=== PATIENT | female | born 1970 ===

== ENCOUNTER 2020-09-16 08:40 | Emergency (ER) | payer OTHER, SELFPAY ==
--- NOTE | ~2020-09-16 | XR_ITS ---
EXAMINATION: XR FOOT, LEFT CLINICAL INFORMATION: Injury. Painful COMPARISON: None TECHNIQUE: AP, lateral, and oblique views of the left foot. FINDINGS: There is a nondisplaced fracture base of proximal phalanx fifth digit no additional fractures seen. The soft tissues are normal. The ankle mortise and subtalar joints are normal. There is a small calcaneal and retrocalcaneal enthesophyte. XR/XR foot LT 2V IMPRESSION: Nondisplaced fracture proximal end proximal phalanx fifth digit with mild soft tissue swelling.
[2020-09-16 08:45] VITALS: BP 159/97; PULSE 100; RESP 18; TEMP 37.1; O2SAT 99; BMI 38.7
--- NOTE | 2020-09-16 09:36 | ED_ITS ---
HPI - Extremity Injury (Lower) General Chief Complaint: Extremity Injury, Lower Stated Complaint: lt foot injury Time Seen by Provider: 09/16/20 09:36 Source: patient Mode of arrival: ambulatory Limitations: no limitations History of Present Illness HPI Narrative: 50 y/o female presenting with left lateral foot pain for the last 4 days after she accidentally kicked a piece of furniture. She has been avoiding coming to the hospital but the pain has been persistent and affecting her ability to work so she came in for evaluation today. She denies ankle pain or injury. She is able to ambulate with the help of a cane. She report some bruising to her foot and swelling. She has been taking motrin and trying to ice it when possible. 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 MD complaint: foot injury Onset (ago): day(s) (4) Injury: Left: foot and toes Type of Injury: blunt Place: home Severity: moderate Severity scale (1-10): 5 Relieving factors: NSAID, cold therapy, immobilization and rest Exacerbating factors: weight bearing, movement and palpation Context: direct blow Associated symptoms: swelling and able to partially bear weight Other symptoms: none Treatments prior to arrival: cold therapy Related Data Previous Rx's Medication Instructions Recorded albuterol sulfate 90 mcg/actuation 1 inh INHALATION QID PRN 90 Days 07/19/20 aerosol inhaler #18 g hydrocodone-acetaminophen 1 tab PO Q6H PRN #6 tab 09/16/20 ibuprofen 600 mg PO Q8H PRN #20 tab 09/16/20 Allergies Allergy/AdvReac Type Severity Reaction Status Date / Time No Known Allergies Allergy Unverified 11/21/19 15:24 Review of Systems Review of Systems: Constitutional: No Fever, No Chills Gastrointestinal: No Nausea, No Vomiting Musculoskeletal: No joint pain, No Myalgias Skin: No Skin Lesions, No rash Neuro: No Weakness, No Numbness, Psych: No Anxiety/Panic, No Depression Heme/Lymph: + Bruising, No Lymphadenopathy PMFSH Past Medical History Attestation statement: The following information was validated with the patient. Medical History (Updated 09/16/20 @ 10:04 by TIA Mccabe) No known health problems Social History Social History Advance Directives: Yes Advance Directives Information Provided: Yes Advance Directives on File: No Physical Exam Vital Signs: Vital Signs: Last Vital Signs Temp 98.7 F 09/16/20 08:45 Pulse 100 09/16/20 08:45 Resp 18 09/16/20 08:45 BP 159/97 H 09/16/20 08:45 Pulse Ox 99 09/16/20 08:45 Body Mass Index 38.7 Appearance: Alert. Oriented X3. No acute distress. HEENT: normal inspection CVS: Normal heart rate and rhythm. Pulses normal. Respiratory: No respiratory distress. Skin: Skin warm and dry. Normal skin color. Normal skin turgor. No rashes. Extremities: left foot with mild ecchymosis at the base of toes 3-5. Tenderness at the base of the 4th and 5th toes and distal metatarsals. NV intact. able to move all toes. Neuro: Oriented X 3. No motor deficit. No sensory deficit. Ambulates with slow but steady gait, using a cane Course Course Course Narrative: 50 y/o female presenting with left lateral foot and toe pain after she kicked a table 4 days ago. Ecchymosis and tenderness noted. XR ordered for further evaluation. Reevaluation(s) Reevaluation #1: XR showing Nondisplaced fracture proximal end proximal phalanx fifth digit with mild soft tissue swelling. Placed in post-op shoe. She has a cane for ambulation. Will provide pain control and referral to ortho for further management. Discharge Plan Discharge Clinical Impression: Fracture of toe Qualifiers: Encounter type: initial encounter Toe: lesser toe Fracture type: closed Phalanx: proximal Fracture alignment: nondisplaced Laterality: left Qualified Code(s): S92.515A - Nondisplaced fracture of proximal phalanx of left lesser toe(s), initial encounter for closed fracture Patient Disposition: Home, Self-Care Instructions: Toe Fracture (ED) Additional Instructions: Your x-ray today showed a fracture at the base of your pinky toe. Wear the post-op shoe as needed for comfort. You may bear weight as tolerated. Recommend rest, icing several times per day and elevating your foot when possible. Follow up with the mobile security specialist. If you develop new or worsening symptoms call 911 or come back to the ER for further evaluation. Prescriptions: New ibuprofen 600 mg tablet 600 mg PO Q8H PRN (Reason: pain) Qty: 20 RF: 0 hydrocodone-acetaminophen 5-325 mg tablet 1 tab PO Q6H PRN (Reason: pain) Qty: 6 RF: 0 No Action albuterol sulfate 90 mcg/actuation HFA aerosol inhaler 1 inh inhalation QID PRN (Reason: shortness of breath or wheezing) 90 Days Qty: 18 RF: 3 Referrals: Jose Carlos Harris MD [Physician] - 1 week (Nondisplaced fracture proximal end proximal phalanx fifth digit with mild soft tissue swelling.) Stand Alone Forms: Work/School Release Interventions: ED Discharge Assessment Last Done: 09/16/20 10:30 Discharge Date/Time: 09/16/20 10:31
== END 2020-09-16 10:31 | disposition home or self-care (01) ==
PROVIDERS: Emergency Provider Emergency Medicine; PCP Internal Medicine
DX: S92.515A Nondisplaced fracture of proximal phalanx of left lesser toe(s), initial encounter for closed fracture (principal); M79.672 Pain in left foot; X58.XXXA Exposure to other specified factors, initial encounter; Y93.9 Activity, unspecified; Y92.9 Unspecified place or not applicable; Y99.9 Unspecified external cause status; Z79.899 Other long term (current) drug therapy
CPT/HCPCS: 73620; 99283

== ENCOUNTER 2020-10-16 10:21 | Outpatient (REF) | payer OTHER, SELFPAY ==
--- NOTE | ~2020-10-16 | MM_ITS ---
EXAMINATION: MM SCREENING DIGITAL BREAST TOMOSYNTHESIS, BILATERAL CLINICAL INFORMATION: Screening. Asymptomatic. The lifetime risk of breast cancer based on the Tyrer-Cuzick Model is 5%. COMPARISON: Mammography: 10/11/2019, 10/09/2018, 02/15/2014 TECHNIQUE: Digital breast tomosynthesis is performed in both the craniocaudal and mediolateral oblique views along with computer-aided detection (CAD). Synthesized 2D images are generated from the tomosynthesis. FINDINGS: The breasts are almost entirely fatty (ACR BI-RADS breast composition Category a). There are no significant masses, abnormal calcifications, or other abnormalities. Background stromal markings are stable and unremarkable. There are grouped benign coarse dermal calcifications again seen posterior 5:00 right breast. MM/MM tomosynthesis screening BI IMPRESSION: No mammographic evidence of malignancy. ASSESSMENT: BI-RADS 2: Benign RECOMMENDATION: Routine annual mammography screening. This patient's information was entered into a reminder system with a target due date for their next mammogram.
== END 2020-10-16 10:22 | disposition home or self-care (01) ==
LOC: HO.MAMMO 10:21
PROVIDERS: Visit Provider Internal Medicine
DX: Z12.31 Encounter for screening mammogram for malignant neoplasm of breast (principal)
CPT/HCPCS: 77063; 77067

== ENCOUNTER → 2021-01-05 11:36 | Outpatient (BNVA) | payer OTHER, SELFPAY | PROVIDERS: PCP Internal Medicine; Visit Provider Physician Assistant Medical | DX: L29.9 Pruritus, unspecified (principal) | CPT/HCPCS: 99202 ==

== ENCOUNTER 2021-05-22 08:54 | Outpatient (REF) | payer OTHER, SELFPAY ==
--- NOTE | ~2021-05-22 | XR_ITS ---
EXAMINATION: RIGHT WRIST X-RAY CLINICAL INFORMATION: Pain COMPARISON: None TECHNIQUE: 4 views of the right wrist FINDINGS: Bone alignment is normal. No fracture or dislocation is seen. Joint spaces are normal. Soft tissues are normal. XR/XR hand wrist RT IMPRESSION: Unremarkable exam.
[2021-05-22 09:35] LABS: MANUAL DIFF FLAG NO
[2021-05-22 10:20] LABS: Basophils Percent Auto 0.2 % (0-2); Eosinophils Absolute Auto 0.3 X10*3/uL (0.0-0.4); Eosinophils Percent Auto 3.4 % (0-4); Hematocrit 38.8 % (37.0-47.0); Hemoglobin 12.7 g/dl (12.0-16.0); Imm Gran Abs Auto 0.04 X10*3/uL (0.00-0.03); Imm Gran Pct Auto 0.5 % (0.0-0.4); Lymphocytes Absolute Auto 2.1 X10*3/uL (1.2-4.9); Lymphocytes Percent Auto 25.1 % (20-40); Mean Corpuscular HGB Conc 32.7 g/dl (31.0-35.0); Mean Corpuscular Hemoglobin 29.6 pg (27.0-33.0); Mean Corpuscular Volume 90.4 fL (80.0-98.0); Mean Platelet Volume 9.2 fL (9.4-12.3); Monocytes Absolute Auto 0.7 X10*3/uL (0.1-1.2); Monocytes Percent Auto 7.8 % (2-11); Neutrophils Absolute Auto 5.3 x10*3/uL (2.0-8.3); Platelet Count 328 X10*3/uL (160-400); Red Blood Count 4.29 X10*6/uL (4.20-5.50); Red Cell Distribution Width 13.2 % (11.0-16.0); White Blood Count 8.5 X10*3/uL (4.8-10.8)
[2021-05-22 10:31] LABS: Alanine Aminotransferase 26 U/L (0-31); Alkaline Phosphatase 153 U/L (39-117); Anion Gap 14 (12-20); Aspartate Amino Transferase 22 U/L (5-31); Bilirubin Total 0.6 mg/dL (0.0-1.0); Blood Urea Nitrogen 19 mg/dL (9-16); Calcium 9.4 mg/dL (8.4-10.2); Carbon Dioxide 24 mmol/L (22-29); Chloride 105 mmol/L (96-108); Cholesterol 250 mg/dL; Estimated Glomerular Filt Rate > 60; Glucose Fasting 107 mg/dL (60-99); HDL Cholesterol 50 mg/dL; LDL Cholesterol Calculated 187 mg/dl; Potassium 5.2 mmol/L (3.3-5.1); Sodium 138 mmol/L (135-145); Total Protein 7.4 g/dL (6.5-8.0); Triglycerides 68 mg/dL
[2021-05-22 10:53] LABS: Thyroid Stimulating Hormone 0.88 uIU/mL (0.32-4.0)
== END 2021-05-22 08:55 | disposition home or self-care (01) ==
LOC: HO.LAB 08:54
PROVIDERS: PCP Internal Medicine; Visit Provider Internal Medicine
DX: Z00.00 Encounter for general adult medical examination without abnormal findings (principal); M25.531 Pain in right wrist; E66.9 Obesity, unspecified; E78.5 Hyperlipidemia, unspecified; D64.9 Anemia, unspecified; J45.40 Moderate persistent asthma, uncomplicated
CPT/HCPCS: 36415; 73110; 73130; 80053; 80061; 84443; 85025

== ENCOUNTER → 2021-07-22 07:55 | Outpatient (BNVA) | payer OTHER, SELFPAY | PROVIDERS: PCP Internal Medicine; Referring Provider Internal Medicine; Visit Provider Nurse Practitioner | DX: Z12.11 Encounter for screening for malignant neoplasm of colon (principal) ==

== ENCOUNTER 2021-10-14 14:13 | Emergency (ER) | payer OTHER, SELFPAY ==
[2021-10-14 14:37] VITALS: BP 154/107; PULSE 97; RESP 18; TEMP 36.8; O2SAT 97; BMI 38.7
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
[2021-10-14 16:55] VITALS: BP 150/89
== END 2021-10-14 17:10 | disposition home or self-care (01) ==
PROVIDERS: Emergency Provider Emergency Medicine; PCP Internal Medicine
DX: S16.1XXA Strain of muscle, fascia and tendon at neck level, initial encounter (principal); V43.63XA Car passenger injured in collision with pick-up truck in traffic accident, initial encounter; R51.9 Headache, unspecified; Y93.89 Activity, other specified; Y92.414 Local residential or business street as the place of occurrence of the external cause; Y99.9 Unspecified external cause status
CPT/HCPCS: 99282; 99283

== ENCOUNTER → 2023-05-05 08:28 | Outpatient (BNVA) | payer OTHER, SELFPAY | PROVIDERS: PCP Internal Medicine; Visit Provider Internal Medicine | DX: S63.8X2A Sprain of other part of left wrist and hand, initial encounter (principal); X50.1XXA Overexertion from prolonged static or awkward postures, initial encounter | CPT/HCPCS: 99203 ==

== ENCOUNTER → 2023-05-10 10:46 | Outpatient (BNVA) | payer OTHER, SELFPAY | PROVIDERS: PCP Internal Medicine; Visit Provider Internal Medicine | DX: S63.502A Unspecified sprain of left wrist, initial encounter (principal); S64.02XA Injury of ulnar nerve at wrist and hand level of left arm, initial encounter; X58.XXXA Exposure to other specified factors, initial encounter; R20.2 Paresthesia of skin | CPT/HCPCS: 73110; 73130; 99203 ==

== ENCOUNTER 2023-05-24 07:30 | Outpatient (RCR) | payer OTHER, SELFPAY ==
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
--- NOTE | 2023-05-24 08:15 | MHC.OT.OP ---
[address] [phone] F: [phone] Occupational Therapy Progress Note Patient Name: Vale Martin Diagnosis: Left wrist strain Date of Evaluation: 05/12/23 Treatments to Date: 3 Subjective: It feels good, the pain is on and off Pain Score: 0 Pain Location: left wrist, volar forearm Objective Measures: Wrist range and gross grasp WFL Quickdash score 2 Status: Progressing Assessment: Vale has been seen in OT after left wrist strain at work. She has done very well w/ good joint protection, activity modification and general progression of range and strength. She has been on light duty at work, but offers no complaint w/ daily activities and reports being pain free at most times, only straining w/ full rotation of forearm. She has met all goals and is Ind w/ home program for self mangement, and she will continue to avoid full forearm rotation, especially in combination with force. 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 Electronically Signed By: Nubia Rodriguez OTR/L NATHENT Reviewed/agree with student documentation: Therapist:
--- NOTE | 2023-05-24 11:18 | MHC.OT.DC ---
[address] [phone] F: [phone] Occupational Therapy Discharge Note Patient Name: Vale Martin Provider: Pavel Kumar MD Diagnosis: Left wrist strain Date of Evaluation: 05/12/23 Date of Discharge: 05/24/23 Treatments to Date: 3 Discharge Status: Achieved Goals Improved Function Independent with HEP Discharge Summary: Vale has been seen in OT after left wrist strain at work. She has done very well w/ good joint protection, activity modification and general progression of range and strength. She has been on light duty at work, but offers no complaint w/ daily activities and reports being pain free at most times, only straining w/ full rotation of forearm. She has met all goals and is Ind w/ home program for self management, and she will continue to avoid full forearm rotation, especially in combination with force. She was seen in [facility] today and cleared for return to work and herapy discharge. Electronically Signed By: Nubia Rodriguez OTR/L CHT Reviewed/agree with student documentation: Therapist: Please Sign and return to therapist, thank you for your referral.
== END 2023-05-24 14:09 | disposition home or self-care (01) ==
LOC: HO.OT 07:30
PROVIDERS: PCP Internal Medicine; Visit Provider Internal Medicine
DX: S66.912D Strain of unspecified muscle, fascia and tendon at wrist and hand level, left hand, subsequent encounter (principal)
CPT/HCPCS: 29125; 97110; 97140; 97165; 97760

== ENCOUNTER → 2023-05-24 08:48 | Outpatient (BNVA) | payer OTHER, SELFPAY | PROVIDERS: PCP Internal Medicine; Visit Provider Internal Medicine | DX: S63.8X2D Sprain of other part of left wrist and hand, subsequent encounter (principal); X50.1XXD Overexertion from prolonged static or awkward postures, subsequent encounter | CPT/HCPCS: 99213 ==

== ENCOUNTER → 2023-08-01 13:58 | Outpatient (RCR) | payer OTHER, SELFPAY | END | disposition home or self-care (01) | LOC: HO.OT 07-02 10:03 | PROVIDERS: PCP Internal Medicine; Visit Provider Internal Medicine | DX: M25.531 Pain in right wrist (principal) | CPT/HCPCS: 97110; 97165 ==

== ENCOUNTER 2024-01-08 15:15 | Outpatient (AMB) | payer OTHER, SELFPAY ==
--- NOTE | 2024-01-08 15:23 | MHC.OFFVIS ---
Vital Signs 01/08/24 15:29 Height 5 ft 1 in Weight 214 lb BMI 40.4 Intake Visit Reasons: Colonoscopy Screening Intake Note: This patient presents for colonoscopy screening. Pt c/o; reports no complaints at this time. 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 She has never had any colonoscopy in the past. She denies any significant GI complaints. She denies any family history of colon cancer She is a known smoker. She says a pack a day will last her about 3-5 days PFS Medical History Mild recurrent major depression Right wrist pain Physical exam Moderate persistent asthma Obesity (BMI 30-39.9) Surgical History H/O dilation and curettage Tubal ligation status Previous section Family History Father Cancer Diabetes Mother No problems noted. Social History Housing: House Alcohol intake: current Alcohol intake frequency: holidays/special occasions only Alcohol type: beer Patient Tobacco Use Status: Current everyday Tobacco user Tobacco use type: Cigarette Cigarettes Per Day: 7 e-Cigarette/Vaping Use: Never Used Second Hand Smoke Exposure: No service: No Current occupational status: employed Current occupational exposures/hazards: No Review of Systems Const Denies chills and Denies fever(s) Card Denies chest pain, Denies dyspnea and Denies dyspnea on exertion Resp Denies cough, Denies dyspnea and Denies dyspnea on exertion GI Denies hematochezia and Denies change in bowel habits Denies hematuria Musc Denies back pain and Denies limited range of motion Neuro Denies focal weakness and Denies convulsions Psych Denies depression and Denies mood swings Physical Exam Vital Signs: BMI result Body Mass Index 40.4 Const Other: Obese General: comfortable and no acute distress Orientation/consciousness: patient oriented x3 Neck Neck: Yes no lymphadenopathy Resp Auscultation: clear to auscultation bilaterally Cardio Rhythm: regular rhythm GI Palpation (GI): Soft to palpation, nontender and no guarding Neuro General: patient oriented x3 Assessment & Plan Assessment & Plan (1) Colon cancer screening: Code(s): Z12.11 - Encounter for screening for malignant neoplasm of colon Category: Medical Plan: I reviewed with her the technique of colonoscopy for screening. I explained the risks including but not limited to bleeding and perforation, as well as the benefits and alternatives. She understands and wants to proceed. Coding Level of Care Code New Pt Level 3 (48927) Diagnoses Colon cancer screening Z12.11
[2024-01-08 15:29] VITALS: BMI 40.4
== END 2024-01-08 15:49 | disposition home or self-care (01) ==
LOC: HO.HGS 15:16
PROVIDERS: PCP Internal Medicine; Referring Provider Internal Medicine; Visit Provider Surgery
DX: Z12.11 Encounter for screening for malignant neoplasm of colon (principal)
CPT/HCPCS: 99203

== ENCOUNTER 2024-01-10 15:42 | Outpatient (AMB) | payer OTHER, SELFPAY ==
--- NOTE | 2024-01-10 15:44 | MHC.PC.OV ---
Vital Signs 01/10/24 15:45 01/10/24 16:26 Height 5 ft 1 in Weight 208 lb BMI 39.3 BP 168/90 H 150/80 H Blood Pressure Location Lt brachial Lt brachial Position Sitting Sitting Intake Visit Reasons: Annual PE - see comments Intake Note: Patient here for a physical exam School Office Assistant Required: No Accompanied by: Self / Same As Patient Allergies No Known Allergies Allergy (Verified 01/10/24 16:04) Medication List - Last Reconciled 01/10/24 by Fernanda Deras MD albuterol sulfate 90 mcg/actuation 1 inh inhalation QID PRN 90 days bupropion HCl XL 150 mg PO QAM 90 days Tobacco use date assessed: 01/10/24 Dental Screening Dental Screen Date: 01/10/24 Did you have a dental visit in the last 12 months?: Yes Did you have a dental problem in the last 6 months where you did not have access to dental care?: No Was dental information given to patient?: Patient has dentist HPI HPI Comments History of Present Illness Details This is a 53-year-old female with mild recurrent major depression and obesity that comes for her physical exam. Depression still present with bupropion and I will increase it. She declines any counseling or psychiatry follow-up. She is obese with a BMI of 39.3 and has tried diet and exercise with no improvement. I will start her on Wegovy. Has elevated blood pressure today that will be recheck in 3 weeks. Mammogram was not done over a year and I will order a mammogram. Saw surgeon for colonoscopy and is pending to be scheduled. Pap smear was done few years ago and was advised to call. No chest pain or shortness on breath. Complains of macular hyperpigmentation of brown color present in the upper lip most likely due to melasma. Her sister has the same issue. [facility], [facility] Medical History Mild recurrent major depression Right wrist pain Physical exam Moderate persistent asthma Obesity (BMI 30-39.9) Surgical History H/O dilation and curettage Tubal ligation status Previous section Family History Father Cancer Diabetes Mother No problems noted. Social History Housing: House Alcohol intake: current Alcohol intake frequency: holidays/special occasions only Alcohol type: beer Patient Tobacco Use Status: Current everyday Tobacco user Tobacco use type: Cigarette Cigarettes Per Day: 7 e-Cigarette/Vaping Use: Never Used Second Hand Smoke Exposure: No service: No Current occupational status: employed Current occupational exposures/hazards: No Cognitive needs: No Hearing needs: No Vision needs: Yes Questionnaire PHQ-9 Over the last 2 weeks, how often have you been bothered by any of the following problems? 1. Little interest or pleasure in doing things: several days 2. Feeling down, depressed, or hopeless: several days 3. Trouble falling or staying asleep, or sleeping too much: several days 4. Feeling tired or having little energy: several days 5. Poor appetite or overeating: more than half the days 6. Feeling bad about yourself - or that you are a failure or have let yourself or your family down: several days 7. Trouble concentrating on things, such as reading the newspaper or watching television: several days 8. Moving or speaking so slowly that other people could have noticed. Or the opposite - being so fidgety or restless that you have been moving around a lot more than usual: more than half the days 9. Thoughts that you would be better off or of hurting yourself in some way: not at all Total score: 10 Depression Screening Interpretation: Positive Depression Screening Follow-up: Existing condition, In treatment, Change in Medication and Follow-up Visit Requested Depression Screening Done: Yes 67752 - PHQ-9 Billing: Yes Source: Developed by Drs. Adam Griffin, Diana Barker, Jules Maradiaga and colleagues, with an educational lisa from [employer]. Thrive Questionnaire Date Thrive assessed: 01/10/24 I am a: Patient What is your living situation today?: I have a steady place to live Within the past 12 months, did the food you bought not last and you didn't have the money to get more?: Never true Within the past 12 months, did you worry whether your food would run out before you got money to buy more?: Never true Do you have trouble paying for medicines?: I choose not to answer this question Do you have trouble getting transportation to medical appointments?: No Do you have trouble paying your heating and electricity bill?: I choose not to answer this question Do you have trouble taking care of your child, family member or friend?: No Do you have trouble with day-to-day activities such as bathing, preparing meals, shopping, managing finances, etc.?: No Are you currently unemployed and looking for a job?: No Are you interested in more education?: No Please select the resources that you would like help with: None Currently or been in a relationship where the following occur: I choose not to answer THRIVE Score: 0 AUDIT C Alcohol Use Questionnaire (AUDIT-C) 1. How often do you have a drink containing alcohol?: Never Total Score: 0 Score Reviewed/Action Taken: No EDGAR-7 AMB Questionnaire EDGAR-7 Date EDGAR - 7 assessed: 01/10/24 Feeling nervous, anxious, or on edge: 2 = More than half the days Not being able to stop or control worryin = More than half the days Worrying too much about different things: 2 = More than half the days Trouble relaxin = More than half the days Being so restless that it is hard to sit still: 1 = Several days Becoming easily annoyed or irritable: 2 = More than half the days Feeling afraid as if something awful might happen: 2 = More than half the days Total EDGAR-7 score (0-4 normal; 5-9 mild; 10-14 moderate; 15-21 severe): 13 Source: Developed by Drs. Adam Griffin, Diana Barker, Jules Maradiaga and colleagues, with an educational lisa from [employer] EDGAR-7 Assessment Billing EDGAR-7 Assessment Tool: EDGAR-7 Assessment 45394 Review of Systems Const All systems reviewed & are unremarkable except as noted in HPI and below Card Denies chest pain at rest, Denies chest pain with activity, Denies edema, Denies irregular heart rhythm, Denies claudication, Denies dyspnea, Denies dyspnea on exertion, Denies orthopnea, Denies paroxysmal nocturnal dyspnea and Denies slow heart rate Resp Denies cough, Denies dyspnea and Denies dyspnea on exertion Denies urinary incontinence, Denies urinary hesitancy and Denies urinary urgency Musc Denies abnormal gait, Denies atrophy, Denies deformity and Denies limited range of motion Skin/Breast Denies bleeding lesions, Denies changing lesions and Denies rash Neuro Denies abnormal gait and Denies lack of coordination Physical exam (Primary Care) Vital Signs: Last Vital Signs BP 150/80 H 01/10/24 16:26 Care Plan Goal for BP management: Decrease salt intake. Blood pressure goal is equal or less than 130/80. Next steps: Recheck blood pressure with nurse navigator in 3 weeks. BMI result Body Mass Index 39.3 BMI Assessment/Plan discussion: High BMI High, discussed plan: lifestyle, weight reduction, dietary and physical activity Tobacco/Smoking Status: Tobacco use Status Tobacco use date assessed 01/10/24 01/10/24 15:49 Patient Tobacco Use Status Current everyday Tobacco 01/10/24 15:49 Tobacco use type Cigarette 01/10/24 15:49 e-Cigarette/Vaping Use Never Used 01/10/24 15:49 Are you ready to quit: No Tobacco cessation counseling provided: Yes Items discussed: Nicotine replacement and [employer]uitWorks Relapse Prevention: discussed the importance of a supportive environment, discussed negative mood or depression after quitting, weight gain after smoking is common and discussed dietary, exercise and/or lifestyle changes Number of minutes spent counselin CPT code: 42677 - 4-10 Minutes PHQ-9: PHQ-9 Score PHQ-9: Total score 10 01/10/24 16:36 Depression Screening Interpretation: Positive Depression Screening Follow-up: Existing condition, In treatment, Change in Medication and Follow-up Visit Requested Thrive Assessment: Date of Thrive Assessment Date Thrive assessed 01/10/24 01/10/24 15:49 Currently or been in a relationship where the following occur: I choose not to answer [facility] Head: Yes normal to inspection, Yes normocephalic and Yes atraumatic Eyes General: appearance normal, both eyes and all related structures Eyelids: Yes eyelids normal Conjunctivae: conjunctivae normal Neck Neck: Yes normal visual inspection and Yes supple Resp Effort & Inspection: normal respiratory effort Auscultation: clear to auscultation bilaterally Cardio Jugular venous distension: no JVD Rate: regular rate Rhythm: regular rhythm Heart sounds: S1 normal heart sound present and S2 normal heart sound present GI Inspection: Yes normal to inspection Palpation (GI): Soft to palpation and nontender Auscultation: normal bowel sounds Skin Other: macular hyperpigmentation in upper lip Neuro General: no focal motor deficits Extrem General: Yes full ROM Psych Appearance: grossly normal Coding Level of Care Code Est Pt Level 3 (20605) Est Pt Prev Care 40-64y(72089) Diagnoses Physical exam Z00.00 Mild recurrent major depression F33.0 Obesity, Class II, BMI 35-39.9, isolated E66.812 Melasma L81.1 Additional Codes EDGAR-7 Assessment Billing - EDGAR-7 Assessment Tool: EDGAR-7 Assessment 50854 ([id number]) PHQ-9 - 16500 - PHQ-9 Billing: Yes ([id number]) Vital Signs *Quality* - CPT code: 38692 - 4-10 Minutes ([id number]) Time Spent (min) 35 Assessment & Plan Assessment & Plan (1) Physical exam: Code(s): Z00.00 - Encounter for general adult medical examination without abnormal findings Category: Medical Plan: Repeat in a year. (2) Mild recurrent major depression: Code(s): F33.0 - Major depressive disorder, recurrent, mild Category: Medical Plan: Increase bupropion to 300 mg. (3) Obesity, Class II, BMI 35-39.9, isolated: Code(s): E66.812 - Obesity, class 2 Category: Medical Plan: Start wegovy. BMI goal is less than 30. (4) Melasma: Code(s): L81.1 - Chloasma Category: Medical Plan: Start hydroquinone. Orders: Orders Lipid Panel Today E78.5 - Hyperlipidemia, unspecified Comprehensive [place]. Panel Fast Today Z00.00 - Encounter for general adult medical examination without abnormal findings Thyroid Stimulating Hormone Today E66.812 - Obesity, class 2 MM tomosynthesis screening BI Today Z12.31 - Encounter for screening mammogram for malignant neoplasm of breast Complete Blood Count Auto Diff Today E66.812 - Obesity, class 2 Medications: New hydroquinone 4% 1 appl topical DAILY 30 days 28.4 grams 1RF L81.1 - Chloasma semaglutide (weight loss) (Wegovy) administer weeks 1 through 4 of therapy 0.25 mg (0.5 mL) subcut QWEEK 4 weeks 2 mL 0RF E66.812 - Obesity, class 2 Refilled albuterol sulfate 90 mcg/actuation 1 inh inhalation QID 90 days PRN 18 grams 3RF shortness of breath or wheezing
[2024-01-10 15:45] VITALS: BP 168/90; BMI 39.3
[2024-01-10 16:26] VITALS: BP 150/80
== END 2024-01-10 16:24 | disposition home or self-care (01) ==
LOC: HO.HMCH 15:43
PROVIDERS: PCP Internal Medicine; Visit Provider Internal Medicine
DX: Z00.00 Encounter for general adult medical examination without abnormal findings (principal); F33.0 Major depressive disorder, recurrent, mild; E66.812 Obesity, class 2; Z68.39 Body mass index [BMI] 39.0-39.9, adult; L81.1 Chloasma

== ENCOUNTER → 2024-01-10 15:42 | Outpatient (BNVA) | payer OTHER, SELFPAY | PROVIDERS: PCP Internal Medicine; Visit Provider Internal Medicine | DX: Z00.01 Encounter for general adult medical examination with abnormal findings (principal); L81.1 Chloasma; F33.0 Major depressive disorder, recurrent, mild; E66.812 Obesity, class 2; Z68.39 Body mass index [BMI] 39.0-39.9, adult; Z79.899 Other long term (current) drug therapy | CPT/HCPCS: 96127 ==

== ENCOUNTER 2024-02-24 08:40 | Outpatient (REF) | payer OTHER, SELFPAY | END 2024-02-24 08:41 | disposition home or self-care (01) | LOC: HO.MAMMO 08:40 | PROVIDERS: PCP Internal Medicine; Visit Provider Internal Medicine | DX: Z12.31 Encounter for screening mammogram for malignant neoplasm of breast (principal) | CPT/HCPCS: 77063; 77067 ==

== ENCOUNTER → 2024-02-24 08:45 | Outpatient (BNV) | payer OTHER, SELFPAY | PROVIDERS: PCP Internal Medicine; Visit Provider Internal Medicine | DX: Z12.31 Encounter for screening mammogram for malignant neoplasm of breast (principal) | CPT/HCPCS: 77063; 77067 ==

== ENCOUNTER 2024-03-15 05:51 | Day surgery (SDC) | payer OTHER, SELFPAY ==
[2024-03-13 10:24] VITALS: BMI 40.4
--- NOTE | 2024-03-13 13:49 | HO.ANESPROP2 ---
Documented by User: Tameka Quintanilla NP 03/13/24 13:49 HPI - Anesthesia Eval Consult details Narrative: 54yo F for Colonoscopy with possible Polypectomy PMFSH Active Problems Active Problems: All Active Problems Obesity, Class II, BMI 35-39.9, isolated (Acute) Melasma (Acute) Left wrist pain (Acute ~05/04/23) Asthma (Acute) Colon cancer screening (Acute) Physical exam (Acute) Mild recurrent major depression (Acute) Right wrist pain (Acute) Moderate persistent asthma (Acute) Obesity (BMI 30-39.9) (Acute) Past Medical History Medical History Mild recurrent major depression Right wrist pain Moderate persistent asthma Obesity (BMI 30-39.9) Family History Family History Father Cancer Diabetes Mother No problems noted. Surgical History Surgical History Hx of section H/O dilation and curettage Tubal ligation status Social History Social History Housing: House Are you a primary technical healthcare consultant to a significant other at home: No Do you presently have visiting nurse or other home services: No Alcohol intake: current Alcohol intake frequency: holidays/special occasions only Alcohol type: beer Patient Tobacco Use Status: Current everyday Tobacco user Tobacco use type: Cigarette Cigarettes Per Day: 7 Smoked in Last 30 Days: Yes e-Cigarette/Vaping Use: Never Used Patient Interested in Nicotine Replacement: No Second Hand Smoke Exposure: No Have you been hit, kicked, punched, or otherwise hurt by someone within the past year? If so, by whom?: No Are you DNR?: No Advance Directives: No Advance Directives Information Provided: Yes Recently lost weight without trying: No Nutrition Risks: No Nutritional Risk service: No Current occupational status: employed Current occupational exposures/hazards: No Cognitive needs: No Hearing needs: No Vision needs: Yes Meds Allergies Allergy/AdvReac Type Severity Reaction Status Date / Time No Known Allergies Allergy Verified 03/15/24 06:08 Exam Height,Weight and Vital Signs: Height 5 ft 1 in Weight 97.069 kg Assessment and Plan Assessment Anesthesia Assessment: Chart Reviewed Documented by User: Abdelrahman Melchor MD 03/15/24 07:31 PMFSH Past Medical History Medical History Mild recurrent major depression Right wrist pain Moderate persistent asthma Obesity (BMI 30-39.9) Family History Family History Father Cancer Diabetes Mother No problems noted. Family history of problems with anesthesia: No Surgical History Surgical History Hx of section H/O dilation and curettage Tubal ligation status History of Problems with Anesthesia: No Social History Social History Housing: House Are you a primary technical healthcare consultant to a significant other at home: No Do you presently have visiting nurse or other home services: No Alcohol intake: current Alcohol intake frequency: holidays/special occasions only Alcohol type: beer Patient Tobacco Use Status: Current everyday Tobacco user Tobacco use type: Cigarette Cigarettes Per Day: 7 Smoked in Last 30 Days: Yes e-Cigarette/Vaping Use: Never Used Patient Interested in Nicotine Replacement: No Second Hand Smoke Exposure: No Have you been hit, kicked, punched, or otherwise hurt by someone within the past year? If so, by whom?: No Are you DNR?: No Advance Directives: No Advance Directives Information Provided: Yes Recently lost weight without trying: No Nutrition Risks: No Nutritional Risk service: No Current occupational status: employed Current occupational exposures/hazards: No Cognitive needs: No Hearing needs: No Vision needs: Yes Meds Allergies Allergy/AdvReac Type Severity Reaction Status Date / Time No Known Allergies Allergy Verified 03/15/24 06:08 Exam Airway Mallampati Class: III (anterior, jutting teeth. Likely diff DL, diff mask) TM Dist: <=3cm Neck ROM: Full Loose/Missing/Broken Teeth: Yes and Upper Heart: ok Lungs: ok Other: almost certainly has ANISH. Assessment and Plan Assessment Anesthesia Assessment: Anesthesia Plan Discussed Final Anesthetic Review Family History of Problems with Anesthesia: No History of Problems with Anesthesia: No NPO: Yes ASA Class: III Final Preanesthetic Review: No Changes in Pt Med Stat, Meds/Allgs Chart Reviewed, Consent Obtained/Reviewed and Anes Risks/Benef Reviewed Patient Risk: Intermediate Procedure Risk: Low Anesthetic Plan Anesthetic Plan: MAC: and Agree w/ Assess. and Plan Disposition: Standard PACU
[2024-03-15 06:03] VITALS: BMI 38.4
[2024-03-15] MEDS: Lactated Ringers 1,000 ML 100 ML IVCONT (06:10)
[2024-03-15 06:13] VITALS: BP 144/88; PULSE 89; RESP 18; TEMP 36.7; O2SAT 99
--- NOTE | 2024-03-15 07:16 | MHC.SHP ---
Pre-Procedural Eval Section A - 24 Hr Update-Section A only Date of Service: 03/15/24 Section B - Complete if H&P > 30 days Chief Complaint: Encounter for screening for malignant neoplasm of Details of Present Illness: for screening colonoscopy - no GI complaints, no FH Relevant Family History (Specify if Yes): No Relevant Social History: None Present Medications: see Short Stay Collaborative assessment Medical History: Significant History (asthma, obesity, depression) Allergies: Allergies Allergy/AdvReac Type Severity Reaction Status Date / Time No Known Allergies Allergy Verified 03/15/24 06:08 Review of Systems Sugical H&P ROS: Negative: Constitution, Respiratory and Gastrointestinal Exam Surgical H&P Exam: Normal: Heart, Normal: Lungs and Normal: Abdomen Plan Diagnosis/Plan: Unchanged I have reviewed the history and physical and performed a pertinent physical examination on my patient. No changes have occurred unless specified. Time Spent With Patient Time: Total time managing care of this patient today ____ minutes.
--- NOTE | 2024-03-15 07:57 | P.OP_ITS ---
Operative Note Operative Note Date of Service: 03/15/24 Narrative: Preop diagnosis: Colon cancer screening Postop diagnosis: Normal colonoscopy findings Procedure: Colonoscopy Surgeon: Jimmy Sheets MD The patient is a 54 year old female referred for screening colonoscopy. She understood the technique of the planned procedure as well as the risks, benefits, and alternatives. The patient was brought to the operating room and placed in left lateral decubitus position under monitored anesthesia care. A surgical time-out was done. A full digital rectal exam was done and this did not reveal any significant anal lesions. The tip of the Olympus colonoscope was gently intr oduced through the anal orifice advanced with insufflation all the way to the cecum. The cecum was intubated. The cecum was identified by visualization of the ileocecal valve as well as the appendiceal orifice. The cecal mucosa was unremarkable. The scope was gradually withdrawn with careful examination of the entire colonic mucosa being done with scope withdrawal. The patient had adequate bowel prep so it was unlikely that any lesion may have been missed. The rectum was reached and there were no lesions seen. The anal canal was unremarkable. The scope was then withdrawn completely with desufflation. The patient tolerated the procedure well. There were no immediate complications. She is at average risk for colon cancers her next colonoscopy may be in the next 10 years.
[2024-03-15 08:01] VITALS: BP 111/70; PULSE 76; RESP 18; TEMP 36.1; O2SAT 98
[2024-03-15 08:16] VITALS: BP 121/76; PULSE 75; RESP 16; TEMP 36.2; O2SAT 98
== END 2024-03-15 08:30 | disposition home or self-care (01) ==
PROVIDERS: PCP Internal Medicine; Visit Provider Surgery
PROC: 0DBE8ZZ Excision of Large Intestine, Via Natural or Artificial Opening Endoscopic (ICD-10-PCS; CPT 45378; principal; 2024-03-15 07:30)
DX: Z12.11 Encounter for screening for malignant neoplasm of colon (principal); J45.40 Moderate persistent asthma, uncomplicated; E66.9 Obesity, unspecified; Z68.41 Body mass index [BMI] 40.0-44.9, adult; F33.0 Major depressive disorder, recurrent, mild; Z79.51 Long term (current) use of inhaled steroids; Z79.899 Other long term (current) drug therapy; Z98.51 Tubal ligation status; F17.210 Nicotine dependence, cigarettes, uncomplicated
CPT/HCPCS: 45378; J2003; J2704

== ENCOUNTER → 2024-03-15 05:51 | Outpatient (BNV) | payer OTHER, SELFPAY | PROVIDERS: PCP Internal Medicine; Visit Provider Surgery | DX: Z12.11 Encounter for screening for malignant neoplasm of colon (principal) | CPT/HCPCS: 45378 ==